=== PATIENT | male | born 1945 | race Caucasian/White ===

== ENCOUNTER 2022-08-24 10:29 | Emergency (ER) | payer OTHER ==
[~2022-08-24] VITALS: Ht 177.8 cm; Wt 87.0 kg
[2022-08-24] MEDS ORDERED: SODIUM CHLORIDE 0.9% 1,000 ML IV ONE (11:15)
[2022-08-24] MEDS ORDERED: MAGNESIUM HYDROXIDE 400MG/5ML 30ML UDC PO ONE (11:15)
[2022-08-24 11:49] LABS: BASOPHILS % 0.3 % (0.0-2.0); EOSINOPHILS % 0.4 % (0.0-5.0); HEMATOCRIT. 44.6 % (42.0-52.0); HEMOGLOBIN. 15.4 g/dL (14.0-18.0); LYMPHOCYTES % 8.4 % (20.0-50.0); MEAN CORPUSCULAR HEMOGLOBIN 33.1 pg (28.0-32.0); MEAN CORPUSCULAR VOLUME 96.1 fL (80.0-94.0); MEAN PLATELET VOLUME 7.8 fl (7.4-10.4); MONOCYTES % 7.3 % (2.0-8.0); NEUTROPHILS % 83.6 % (40.0-76.0); PLATELET 133 x1000/uL (130-400); RED BLOOD CELL COUNT 4.64 mill/uL (4.7-6.1); RED CELL DISTRIBUTION WIDTH 13.8 % (11.6-14.6)
[2022-08-24 11:57] LABS: CHLORIDE 106 mEq/L (98-107)
[2022-08-24 12:05] LABS: ETHANOL BLOOD < 10 mg/dL
[2022-08-24] MEDS ORDERED: MAGNESIUM HYDROXIDE 400MG/5ML 30ML UDC PO NR (12:47)
[2022-08-24 12:51] LABS: CLARITY URINE CLOUDY (CLEAR); COLOR URINE YELLOW (YELLOW); KETONES URINE 1+ (NEGATIVE); LEUKOCYTE ESTERASE URINE 3+ (NEGATIVE); NITRITE URINE POSITIVE (NEGATIVE); OCCULT BLOOD URINE TRACE (NEGATIVE); PROTEIN URINE NEGATIVE (NEGATIVE); SPECIFIC GRAVITY URINE 1.013 (1.005-1.030)
[2022-08-24 13:05] LABS: *AMPHETAMINES SCREEN URINE NEGATIVE (NEGATIVE); *BARBITURATES SCREEN URINE NEGATIVE (NEGATIVE); *BENZODIAZEPINES SCREEN URINE NEGATIVE (NEGATIVE); *COCAINE SCREEN URINE NEGATIVE (NEGATIVE); CANNABINOID URINE SCREEN NEGATIVE (NEGATIVE); METHADONE URINE SCREEN NEGATIVE (NEGATIVE); OPIATES URINE SCREEN NEGATIVE (NEGATIVE); PHENCYCLIDINE URINE SCREEN NEGATIVE (NEGATIVE)
[2022-08-24] MEDS ORDERED: CEFTRIAXONE 1GM PREMIX 50 ML IV ONE (13:15)
[2022-08-24] MEDS ORDERED: CEPH500C2 MT (14:00)
[2022-08-24] MEDS ORDERED: DOCU-138 MT (14:00)
[2022-08-24] MEDS ORDERED: CEFTRIAXONE 1GM PREMIX 50 ML IV NR (16:00)
[2022-08-25] MEDS ORDERED: CARVEDILOL 6.25 MG TABLET PO ONE (09:00)
[2022-08-25] MEDS: APIXABAN 5 MG TABLET PO SCH ×3 (09:00→18:58)
[2022-08-25] MEDS: LEVOFLOXACIN 250MG TABLET PO SCH (11:00)
[2022-08-26] MEDS: LEVOFLOXACIN 250MG TABLET PO SCH (11:19)
[2022-08-26] MEDS: APIXABAN 5 MG TABLET PO SCH ×2 (11:19→17:48)
[2022-08-26] MEDS: FLUOXETINE HCL 10 MG CAPSULE PO SCH (13:27)
[2022-08-27] MEDS: APIXABAN 5 MG TABLET PO SCH ×2 (09:00→17:42)
[2022-08-27] MEDS: FLUOXETINE HCL 10 MG CAPSULE PO SCH (09:57)
[2022-08-28] MEDS: APIXABAN 5 MG TABLET PO SCH (09:47)
[2022-08-28] MEDS: FLUOXETINE HCL 10 MG CAPSULE PO SCH (09:47)
[2022-08-29] MEDS: FLUOXETINE HCL 20MG CAPSULE PO SCH (09:04)
[2022-08-29] MEDS: APIXABAN 5 MG TABLET PO SCH ×2 (09:05→17:00)
[2022-08-29] MEDS: LEVOFLOXACIN 500MG TABLET PO SCH (15:02)
[2022-08-29 20:00] VITALS: BP 146/86
[2022-08-30] MEDS: LEVOFLOXACIN 500MG TABLET PO SCH (09:19)
[2022-08-30] MEDS: APIXABAN 5 MG TABLET PO SCH (09:19)
[2022-08-30] MEDS: FLUOXETINE HCL 20MG CAPSULE PO SCH (09:19)
== END 2022-08-30 12:48 | disposition home or self-care (01) ==
LOC: ER 10:29 → EDBEDREQTM 08-29 11:54 → EDBEDREQ 08-29 11:54 → ER 08-30 12:48
DX: N30.00 Acute cystitis without hematuria (principal); R45.851 Suicidal ideations; Z20.822 Contact with and (suspected) exposure to COVID-19; I10 Essential (primary) hypertension; Z95.0 Presence of cardiac pacemaker
CPT/HCPCS: 36415; 74176; 80053; 80305; 80307; 80320; 80329; 81003; 83690; 85025; 87086; 87186; 87426; 96361; 96365; 96366; 99291; C9803; J0696; J7030; G0480

== ENCOUNTER 2023-09-16 15:42 | Emergency (ER) | payer MEDICARE, OTHER ==
[~2023-09-16] VITALS: Ht 167.6 cm; Wt 80.0 kg
[~2023-09-16 15:42] MED LIST: CEPH500C2 MT; DOCU-138 MT
[2023-09-16 15:44] VITALS: O2SAT 100
[2023-09-16] MEDS: TETRACAINE/BENZOCAINE/BUTAMBEN 20 GM SPRAY MM NR (16:15)
[2023-09-16] MEDS: SODIUM CHLORIDE 0.9% 1,000 ML IV ONE (16:28)
[2023-09-16] MEDS: TRANEXAMIC ACID 1,000MG/10ML IV ONE (16:28)
[2023-09-16 16:47] LABS: BASOPHILS % 0.6 % (0.0-2.0); EOSINOPHILS % 1.6 % (0.0-5.0); HEMATOCRIT. 43.2 % (42.0-52.0); HEMOGLOBIN. 14.3 g/dL (14.0-18.0); LYMPHOCYTES % 9.9 % (20.0-50.0); MEAN CORPUSCULAR HGB CONC 33.1 g/dL (31.0-37.0); MEAN CORPUSCULAR VOLUME 96.7 fL (80.0-94.0); MEAN PLATELET VOLUME 7.9 fl (7.4-10.4); MONOCYTES % 4.8 % (2.0-8.0); NEUTROPHILS % 83.1 % (40.0-76.0); PLATELET 145 x1000/uL (130-400); RED BLOOD CELL COUNT 4.47 mill/uL (4.7-6.1); RED CELL DISTRIBUTION WIDTH 15.2 % (11.6-14.6); WHITE BLOOD COUNT 6.5 x1000/uL (4.5-11.0)
[2023-09-16 16:53] LABS: CHLORIDE 110 mEq/L (98-107); POTASSIUM 3.7 mEq/L (3.5-5.1); SODIUM 139 mEq/L (136-145)
[2023-09-16 16:54] LABS: CALCIUM 9.2 mg/dL (8.7-10.4); CARBON DIOXIDE 25 mEq/L (21-32)
[2023-09-16 16:59] LABS: GLUCOSE 105 mg/dL (70-105); UREA NITROGEN BLOOD 15 mg/dL (9-23)
[2023-09-16 17:26] LABS: INR 1.1; PARTIAL THROMBOPLASTIN TIME 27.6 sec (23.4-31.0); PROTHROMBIN TIME 12.6 sec (9.6-11.0)
[2023-09-16 20:01] VITALS: BP 155/74; PULSE 61; RESP 14; TEMP 98.1
== END 2023-09-16 20:12 | disposition home or self-care (01) ==
LOC: ER 15:42
DX: R04.0 Epistaxis (principal); I10 Essential (primary) hypertension; Z98.890 Other specified postprocedural states
CPT/HCPCS: 99284; 96374; 96361; 80048; 85025; 85610; 85730; 86850; 86900; 86901; 36415; 93005; J7030